=== PATIENT | female | born 1985 | race Caucasian/White ===

== ENCOUNTER → 2019-04-11 17:58 | Emergency (ER) | payer BC, OTHER ==
[~2019-04-11 17:58] MED LIST: Amoxicillin/Clavulanate TAB* 875 MG PO ONE; Lidocaine 1% INJ* 10 MG/ML 30 ML SDV INJ ONE
--- OUTSIDE RECORDS SUMMARY | 2019-04-11 18:13 | XMS REPORT | Continuity of Care Document ---
:1985 External Reference #:[id number] Author Name Raymond Swan D.O. Address [address] [place] [id number] Care Team Providers Name Role Phone HCP given Primary Care Physician Unavailable Payers Date Identification Numbers Payment Provider Subscriber Effective: Policy Number: [id number] Elba Pinon 2018 Ind/Ppo/Hmo/Pos PayID: [id number] [address] [place] [id number] Problems Active Problems Provider Date Nausea and vomiting Raymond Swan D.O. Onset: 08/07/2015 Amenorrhea Raymond Swan D.O. Onset: 08/07/2015 Nontoxic single thyroid nodule Raymond Swan D.O. 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 Right-handed Tobacco Use Start: Unknown Denies Cigarette Use ETOH Use Occassional Alcohol Recreational Drug Use Denies Drug Use Tobacco Use Reviewed: 11/01/18 Non Smoker Smoking Status Reviewed: 03/05/19 Non Smoker Exercise Type/Frequency Exercises regularly Sun Exposure Uses sunscreen Seat Belt/Car Seat Seat Belt Use - Yes Guns in Home No Smoke Alarms Yes smoke alarm Currently Active Patient is currently sexually active Contraceptive Methods 2016 IUD Mirena Allergies, Adverse Reactions, Alerts Description No Known Drug Allergies Medications Active Medications SIG Qnty Indications Ordering Provider Date Tobramycin 1 drop three 5ml H10.89 Raymond Swan, 03/05/2019 0.3% Solution times a day for D.O. 3 days Vitamin D-3 2 by mouth every Angelia, [place], 11/01/2018 1000Unit day M.DGabriella Capsules Valacyclovir HCL 1 tablet by Kathleen Rodgers, 08/31/2018 500mg mouth daily MD Tablets Mirena (52 MG) Unknown 08/23/2016 20mcg/24HR IUD History Medications Vitamin B Complex 1 by mouth every 30tabs Angelia, 11/01/2018 - day Ishan Peter 03/04/2019 Tablets Amoxicillin 2 by mouth three 60tabs J01.90 Yovanacoff, 10/20/2018 - 500mg times a day for Ishan Peter 11/01/2018 Tablets 10 days for sinusitis Valacyclovir HCL 1g PO q12h x10 20tabs Angelia, 02/15/2018 - 1gm days Ishan Peter 02/25/2018 Tablets Imiquimod apply to external 36units [facility], 02/14/2018 - 5% Cream lesions 3x/week Ishan Peter 02/15/2018 at bedtime Ciprofloxacin HCL 1 tab by mouth 14tabs N39.0 Yovanaco, 02/09/2018 - 500mg twice a day x7 Ishan Peter 02/16/2018 Tablets days Tumeric one po daily Unknown 10/25/2017 - 02/08/2018 Green Tea Complex one po daily Unknown 10/25/2017 - 02/08/2018 Selenium one po daily Unknown 10/25/2017 - 02/08/2018 Zinc one po daily Unknown 10/25/2017 - 02/08/2018 Vitamin C one po daily Unknown 10/25/2017 - 05/17/2018 Multivitamin Adult 1 by mouth every Unknown 10/25/2017 - day 11/01/2018 Tablets Tamiflu 1 by mouth twice 10caps Silcoff, 10/11/2017 - 75mg Capsules a day x5 days, Ishan Peter 10/16/2017 for possible flu Lo Loestrin Fe Unknown 08/06/2015 - 1mg-10 09/21/2016 mcg / 10 mcg Tablets Onexton apply to affected Unknown 08/06/2015 - 1.2-3.75% Gel area on face once 10/25/2017 a day, for acne as needed Atralin as needed Unknown 08/06/2015 - 0.05% Gel 10/25/2017 Abc Plus one po daily as Unknown 08/06/2015 - Tablets needed 10/25/2017 Vitamin D3 one caps po daily Unknown 08/06/2015 - 1000Unit as needed 05/17/2018 Capsules Immunizations CPT Code Status Date Vaccine Lot # [id number] Given 07/20/2018 Influenza Virus Vaccine, Quadrivalent, Split, Preservative Free 65060 Given 10/26/2017 Adacel or Boostrix, TDaP [id number] Given 10/26/2017 Influenza Virus Vaccine, Quadrivalent, Split, [id number] Preservative Free 35749 Given 09/22/2016 Influenza Virus Vaccine, Quadrivalent, Split, [id number] Preservative Free Vital Signs Date Vital Result Comment 03/05/2019 4:41pm BP Systolic 102 mmHg BP Diastolic 62 mmHg Body Temperature 97.8 F Weight 119.00 lb 11/01/2018 8:23am BP Systolic 100 mmHg BP Diastolic 60 mmHg Height 65 inches 5'5" Weight 119.00 lb BMI (Body Mass Index) 19.8 kg/m2 10/20/2018 11:01am BP Systolic 110 mmHg BP Diastolic 70 mmHg Body Temperature 97.7 F Height 64.50 inches 5'4.50" Weight 120.00 lb BMI (Body Mass Index) 20.3 kg/m2 05/18/2018 4:46pm BP Systolic 106 mmHg BP Diastolic 68 mmHg Heart Rate 60 /min Body Temperature 97.9 F Height 64 inches 5'4" Weight 125.00 lb BMI (Body Mass Index) 21.5 kg/m2 02/09/2018 4:04pm BP Systolic 104 mmHg BP Diastolic 70 mmHg Weight 128.00 lb 10/26/2017 10:01am BP Systolic 100 mmHg BP Diastolic 62 mmHg Height 63.75 inches 5'3.75" Weight 128.00 lb BMI (Body Mass Index) 22.1 kg/m2 09/22/2016 9:51am BP Systolic 108 mmHg BP Diastolic 58 mmHg Height 64 inches 5'4" Weight 131.00 lb BMI (Body Mass Index) 22.5 kg/m2 04/17/2016 9:12am BP Systolic 104 mmHg BP Diastolic 60 mmHg Height 64 inches 5'4" Weight 125.00 lb BMI (Body Mass Index) 21.5 kg/m2 08/07/2015 10:36am BP Systolic 115 mmHg BP Diastolic 80 mmHg Height 64.25 inches 5'4.25" Weight 121.00 lb BMI (Body Mass Index) 20.6 kg/m2 Results Test Date Facility Test Result H/L Range Note Laboratory test 09/20/2018 [facility] Cytology SEE RESULT 1 finding [phone] BELOW Basic Metabolic 05/19/2018 [facility] Sodium 139 mmol/L N 135-145 Panel [phone] Potassium 4.4 mmol/L N 3.5-5.0 Chloride 106 mmol/L N 101-111 Co2 Carbon Dioxide 27 mmol/L N 22-32 Anion Gap 6 mmol/L N 2-11 Glucose 76 mg/dL N 70-100 Blood Urea Nitrogen 14 mg/dL N 6-24 Creatinine 0.70 mg/dL N 0.51-0.95 BUN/Creatinine Ratio 20.0 N 8-20 Calcium 9.3 mg/dL N 8.6-10.3 Egfr Non- 97.6 >60 Egfr 118.1 >60 2 Laboratory test 05/19/2018 [facility] TSH (Thyroid 1.16 mcIU/mL N 0.34-5.60 finding [phone] Stim Horm) T3 Free 3.40 pg/mL N 2.5-3.9 Free T4 (Free Thyroxine) 0.77 ng/dL N 0.61-1.12 Thyroxine 5.53 g/mL Low 6.09-12.23 Vitamin D Total 25(Oh) 44.9 ng/mL N 20-50 Lyme Disease Serology Negative Negative 3 CBC Auto Diff 05/19/2018 [facility] White Blood Count 4.6 10^3/uL N 3.5-10.8 [phone] Red Blood Count 4.68 10^6/uL N 4.00-5.40 Hemoglobin 14.7 g/dL N 12.0-16.0 Hematocrit 42 % N 35-47 Mean Corpuscular Volume 89 fL N 80-97 Mean Corpuscular Hemoglobin 32 pg High 27-31 Mean Corpuscular HGB Conc 35 g/dL N 31-36 Red Cell Distribution Width 13 % N 10.5-15 Platelet Count 229 10^3/uL N 150-450 Mean Platelet Volume 8.5 um3 N 7.4-10.4 Abs Neutrophils 2.0 10^3/uL N 1.5-7.7 Abs Lymphocytes 1.9 10^3/uL N 1.0-4.8 Abs Monocytes 0.4 10^3/uL N 0-0.8 Abs Eosinophils 0.1 10^3/uL N 0-0.6 Abs Basophils 0 10^3/uL N 0-0.2 Abs Nucleated RBC 0 10^3/uL Granulocyte % 44.9 % N 38-83 Lymphocyte % 41.7 % N 25-47 Monocyte % 9.8 % High 0-7 Eosinophil % 2.6 % N 0-6 Basophil % 1.0 % N 0-2 Nucleated Red Blood Cells % 0.1 Laboratory test 05/19/2018 [facility] Vitamin B12 421 pg/mL N 180- 914 4 finding [phone] HIV 1/2 AB 02/10/2018 [facility] HIV 1 2 Nonreactive Nonreactive 5 Evaluation [phone] Antibody Herpes Simplex 02/10/2018 [facility] Herpes Simplex Negative Negative Type 1&2 Igg [phone] Virus I IgG AB Herpes Simplex Virus II IgG AB Negative Negative 6 Laboratory test 02/10/2018 [facility] Syphillis Igg Nonreactive Nonreactive 7 finding [phone] W/Reflex RPR GC/Chlamydia 02/09/2018 [facility] Chlamydia Negative Negative Amplified Rna [phone] trachomatis Rna Neisseria gonorrhoeae (GC) Rna Negative Negative Herpes Simplex PCR 02/09/2018 [facility] Herpes Source VULVAR SWAB [phone] HSV 1 PCR Positive Abnormal Negative HSV 2 PCR Negative Negative 8 [facility] Inhouse 02/09/2018 In House [facility] Glucose - 9 Ua Bilirubin - Ua Ketones 40 Ua Specific [place] 1.030 Ua Blood mod Ua PH 6.0 Ua Protein trace Ua Urobilinogen - Ua Nitrite - Ua Leukocytes mod Laboratory test 11/17/2017 [facility] Surgical SEE RESULT 10 finding [phone] Pathology BELOW Pthi 11/16/2017 [facility] Calcium (PTH 9.4 mg/dL N 8.6-10. [phone] Intact) 3 PTH Intact 2.9 pmol/L N 1.3-9.3 Comp Metabolic Panel 11/04/2017 [facility] Sodium 137 mmol/L N 133- 145 [phone] Potassium 4.4 mmol/L N 3.5-5.0 Chloride 104 mmol/L N 101-111 Co2 Carbon Dioxide 31 mmol/L N 22-32 Anion Gap 2 mmol/L N 2-11 Glucose 89 mg/dL N 70-100 Blood Urea Nitrogen 15 mg/dL N 6-24 Creatinine 0.69 mg/dL N 0.51-0.95 BUN/Creatinine Ratio 21.7 High 8-20 Calcium 9.5 mg/dL N 8.6-10.3 Total Protein 6.6 g/dL N 6.4-8.9 Albumin 4.1 g/dL N 3.2-5.2 Globulin 2.5 g/dL N 2-4 Albumin/Globulin Ratio 1.6 N 1-3 Total Bilirubin 0.60 mg/dL N 0.2-1.0 Alkaline Phosphatase 57 U/L N 34-104 Alt 24 U/L N 7-52 Ast 30 U/L N 13-39 Egfr Non- 99.9 >60 Egfr 128.5 >60 11 Lipid Profile (Trig/Chol/HDL) 11/04/2017 [facility] Triglycerides 44 mg /dL 12 [phone] Cholesterol 193 mg/dL 13 HDL Cholesterol 70.4 mg/dL 14 LDL Cholesterol 114 mg/dL 15 Laboratory test 11/04/2017 [facility] TSH (Thyroid 0.95 mcIU/mL N 0.34-5.60 finding [phone] Stim Horm) T3 Total 1.07 ng/mL N 0.87-1.78 Thyroxine 6.79 g/mL N 6.09-12.23 Miscellaneous Test See Comment 16 Laboratory test 02/05/2016 [facility] Cytology Non-Microsoft Office Instructor SEE RESULT 17 finding [phone] BELOW 1 SEE RESULT BELOW Name: ANGELICA PINON : [address]: Kathleen Rodgers MD Acct: [id number] Unit: [id number] AGE: 33 Location: [facility] Re09/20/18 SEX: F Status: REG REF SPEC: [id number] GILLES: 09/20/18 [facility] DR: Kathleen Rodgers MD REQ: [id number] RECD: 09/20/18 STATUS: THADDEUS LÓPEZ DR: Raymond Swan DO _ ORDERED: TP IMAGE ANALYS, HPV/Thin Prep COMMENTS: [id number] Negative for Intraepithelial lesion or Malignancy Date Time Test Result Flag (u) Normal Range 09/20/18 09 @ HPV RNA Negative Negative @ @ The high-risk HPV types detected by the assay include: 16, @ 18, 31, 33, 35, 39, 45, 51, 52, 56, 58, 59, 66, and 68. A. Ectocervical/Endocervical Specimen Adequacy: Satisfactory of evaluation Transformation zone component identified Patient Information: HPV: High risk HPV RNA testing regardless of pap results. Actual Specimen Date: 09/20/18 Last Menstrual Date: 09/17/18 Date of Last Specimen: 07/06/16 Signed by and Reported on: MONA Larson (ASCP) 0941 This Pap test was evaluated with the assistance of the [employer]via [employer] Test Imaging System. Due to cytologic findings at the education liaison microscope, comprehensive manual rescreening by a Inventory Control Assistant may be required. The Pap Smear is a screening test designed to aid in the detection of premalignant and malignant conditions of the uterine cervix. It is not a diagnostic procedure and should not be used as the sole means of detecting cervical cancer. Both false- positive and false- negative reports do occur. Depending on your risk status, a Pap smear should be obtained and evaluated every 1-3 years. END OF REPORT DEPARTMENT OF PATHOLOGY, [address] [place] [address] Jose Daniel Lockett M.D. Director [facility] # [id number] 2 Because ethnic data is not always readily available, this report includes an eGFR for both -Americans and non- Americans. The National Kidney Disease Education Program (NKDEP) does not endorse the use of the MDRD equation for patients that are not between the ages of 18 and 70, are , have extremes of body size, muscle mass, or nutritional status, or are non- or non-. According to the National Kidney Foundation, irrespective of diagnosis, the stage of the disease is based on the level of kidney function: Stage Description GFR(mL/min/1.73 m(2)) 1 Kidney damage with normal or decreased GFR 90 2 Kidney damage with mild decrease in GFR 60-89 3 Moderate decrease in GFR 30-59 4 Severe decrease in GFR 15-29 5 Kidney failure <15 (or dialysis) 3 No evidence of antibodies to B. burgdorferi detected. False negative results may occur in recently infected patients (<=2 weeks) due to low or undetectable antibody levels to B. burgdorferi. If recent exposure is suspected, a second sample should be collected and tested in 2-4 weeks. Test Performed by: [facility] - [facility] [employer] [place] [address] 4 Normal Range 180 to 914 Indeterminate Range 145 to 180 Deficient Range <145 5 It is recognized that currently available assays for the detection of antibodies to HIV-1 and/or HIV-2 may not detect all infected individuals. HIV antibodies may be undetectable in some stages of the infection and in some clinical conditions. The performance of this assay has not been established for populations of infants or children. Assayed by Chemiluminescence Microparticle Immunoassay on the Siemens Advia Centaur CP. Values obtained with different methods or kits cannot be used interchangeably.The diagnostic specificity of the ADVIA Centaur 1/O/2 Enhanced assay in the low risk population was 99.90% (6052/6058) with a 95% confidence interval of 99.78 to 99.96%. 6 Test Performed by: [facility] - [place] [address] 7 Warning: A positive result is not useful for establishing a diagnosis of syphilis. In most situations, such a result may reflect a prior treated infection; a negative result can exclude a diagnosis of syphilis except for incubating or early primary disease. 8 ADDITIONAL INFORMATION This test was developed using an analyte specific reagent. Its performance characteristics were determined by [facility] in a manner consistent with CLIA requirements. This test has not been cleared or approved by the U.S. Food and Drug Administration. Test Performed by: [facility] - [address] [address] 9 Void, hazy, pro 10 SEE RESULT BELOW Name: ANGELICA PINON : [address]: Chai Vega MD Acct: [id number] Unit: [id number] AGE: 32 Location: [facility] Re11/17/17 SEX: F Status: REG REF SPEC: [id number] GILLES: 11/17/17-[address] [facility] [address]: Chai Vega MD REQ: [id number] RECD: 11/17/171907 STATUS: THADDEUS LÓPEZ DR: Shyanne Zaidi [facility] _ ORDERED: LEVEL 4, IMMUNO-FIRST, IMMUNO-ADDL COMMENTS: [id number] An SMA immunohistochemical staining, with appropriately reacting controls, was performed and is negative, supporting the previously rendered diagnosis. Addendum Signed (signature on file) Kortney Rosales MD 06/03 1011 FINAL DIAGNOSIS Soft tissue, left lower leg, excision: -- Schwannoma (1.5 cm). Comment: Specimen demonstrates an encapsulated nodular mass associated with a nerve trunk. Mass demonstrates a proliferation of [place]-appearing spindled elements arranged in haphazard fascicles forming "[place]ocay" bodies. No atypia is seen. No necrosis or significant mitotic activity is seen. An immunohistochemical stain for S100 performed with appropriate controls is positive and supports the above rendered diagnosis. An immunohistochemical stain for smooth muscle actin performed with appropriate controls is negative. Dr. Rosales has reviewed this case and concurs. PRE-OPERATIVE DIAGNOSIS Left lower leg mass CONTINUED ON NEXT PAGE * ML=Testing performed at Main Lab DEPARTMENT OF PATHOLOGY, [address] [place] [address] Jose Daniel Lockett M.D. Director [facility] # [id number] RUN DATE: 11/24/17 [facility] LAB LIVE PAGE 2 Patient: ANGELICA PINON [id number] (Continued) GROSS DESCRIPTION (Continued) GROSS DESCRIPTION The specimen is received in formalin labeled, Left Lower Leg Mass, and consists of two centrally adherent ovoid bosselated to scabrous conical skin fragments aggregating 1.5 x 1.1 by up to 1.0 cm partially surfaced by delgado-white fibromembranous/ cartilaginous tissue. The specimen is inked, serially sectioned and entirely submitted in one cassette. Signed (signature on file) Jose Daniel Lockett MD 1430 END OF REPORT * ML=Testing performed at Main Lab DEPARTMENT OF PATHOLOGY, [address] [place] [address] Jose Daniel Lockett M.D. Director [facility] # [id number] 11 Because ethnic data is not always readily available, this report includes an eGFR for both -Americans and non- Americans. The National Kidney Disease Education Program (NKDEP) does not endorse the use of the MDRD equation for patients that are not between the ages of 18 and 70, are , have extremes of body size, muscle mass, or nutritional status, or are non- or non-. According to the National Kidney Foundation, irrespective of diagnosis, the stage of the disease is based on the level of kidney function: Stage Description GFR(mL/min/1.73 m(2)) 1 Kidney damage with normal or decreased GFR 90 2 Kidney damage with mild decrease in GFR 60-89 3 Moderate decrease in GFR 30-59 4 Severe decrease in GFR 15-29 5 Kidney failure <15 (or dialysis) 12 Desirable: <150 Borderline High: 150-199 High: 200-499 Very High: >500 13 Desirable: <200 Borderline High: 200-239 High: >239 14 Low: <40 Desirable: 40-60 High: >60 15 Desirable: <100 Near Optimal: 100-129 Borderline High: 130-159 High: 160-189 Very High: >189 16 Test Result Flag Unit RefValue Rabies [facility] Endpoint, S Rabies Titer-Response 2.3 IU/mL ADDITIONAL INFORMATION Reportable range is 0.1 to 15.0 IU/mL Less than 0.1 IU/mL: Below detection limit In humans, a result of 0.5 IU/mL or higher is considered an acceptable response to rabies vaccination according to the World Health Organization (WHO)guidelines; see WHO and Advisory Committee on Immunization Practices documents for additional guidance. Test Performed by: [facility] Rena Lara/[facility] [place] [address] [address] 17 SEE RESULT BELOW Name: ANGELICA IPNON : [address]: Gregg Kingston MD Acct: [id number] Unit: [id number] AGE: 30 Location: THYROID Re02/05/16 SEX: F Status: REG REF SPEC: [id number] GILLES: 02/05/16-[address] [facility] [address]: Austin Stone MD REQ: [id number] RECD: 02/05/16 STATUS: THADDEUS LÓPEZ DR: Gregg Swan DO _ ORDERED: FN ASP DEEP, FNA IMMEDIATE S FINAL DIAGNOSIS Thyroid, left, Ultrasound guided, fine needle aspiration: Benign thyroid nodule- involutional type (Hart class II). The specimen demonstrates moderate watery proteinaceous fluid, a moderate amount of benign appearing follicular epithelium arranged in uniform sheets, medium sized follicles and only occasional small groups. Abundant pigmented and non-pigmented macrophages are seen in the background. No features of papillary carcinoma are seen. In this clinical setting the risk of malignancy is less than 3%. Clinical management of this thyroid nodule should be based on clinical and radiographic features as well as the above findings. THYROID LEFT - US GUIDED FINE NEEDLE ASPIRATION CLINICAL HISTORY Left thyroid nodule, 1.9x 1.1x 1.0cm CONTINUED ON NEXT PAGE * ML=Testing performed at Main Lab DEPARTMENT OF PATHOLOGY, [address] [place] [address] Jose Daniel Lockett M.D. Director [facility] # [id number] RUN DATE: 02/05/16 [facility] LAB LIVE PAGE 2 Patient: ANGELICA PINON [id number] (Continued) IMMEDIATE INTERPRETATION (Continued) IMMEDIATE INTERPRETATION Pass 1-adequate GROSS DESCRIPTION 6- alcohol fixed slide(s) 1 - passes Signed (signature on file) Jose Daniel Lockett MD 1038 END OF REPORT * ML=Testing performed at Main Lab DEPARTMENT OF PATHOLOGY, [address] [place] [address] Jose Daniel Lockett M.D. Director [facility] # [id number] Procedures Date Code Description Status 10/17/2013 [id number] Mammogram Completed 10/17/2009 [id number] Colonoscopy Completed Encounters Type Date Location Provider Dx Diagnosis Office Visit 03/05/2019 Main Office Raymond Swan, H10.89 Other conjunctivitis 4:45p D.O. Office Visit 11/01/2018 Main Office Shyanne Zaidi PA Z00.00 Encntr for general 8:00a adult medical exam w/o abnormal findings E04.1 Nontoxic single thyroid nodule R00.2 Palpitations A60.00 Herpesviral infection of urogenital system, unspecified Office Visit 10/20/2018 11:00a Main Office [place] Galan, J01.90 Acute sinusitis, M.D. unspecified Office Visit 05/18/2018 4:40p Main Office Ashlyn Braga, R53.83 Other fatigue P.A. R94.6 Abnormal results of thyroid function studies Office Visit 02/09/2018 3:15p Main Office Shyanne Zaidi PA N39.0 Urinary tract infection, site not specified B08.1 Molluscum contagiosum Z11.3 Encntr screen for infections w sexl mode of transmiss Office Visit 10/26/2017 9:40a Main Office Shyanne Zaidi PA Z00.00 Encntr for general adult medical exam w/o abnormal findings Z23 Encounter for immunization E04.1 Nontoxic single thyroid nodule R22.42 Localized swelling, mass and lump, left lower limb Z13.220 Encounter for screening for lipoid disorders Z41.8 Encntr for oth proc for purpose oth than [facility] Z71.89 Other specified counseling Office Visit 09/22/2016 9:40a Main Office Shyanne Zaidi PA Z00.00 Encntr for general adult medical exam w/o abnormal findings Z23 Encounter for immunization E04.1 Nontoxic single thyroid nodule Z41.8 Encntr for oth proc for purpose oth than [facility] Office Visit 04/17/2016 9:15a Main Office [place] Galan, M79.605 Pain in left M.D. leg R22.42 Localized swelling, mass and lump, left lower limb Z71.89 Other specified counseling Office Visit 08/07/2015 10:30a Main Office Raymond Swan, R11.2 Nausea with D.O. vomiting, unspecified E04.1 Nontoxic single thyroid nodule N91.2 Amenorrhea, unspecified Z00.01 Encounter for general adult medical exam w abnormal findings Plan of Treatment Future Appointment(s):11/07/2019 8:00 am - Shynane Zaidi PA at Main [facility]6111/2017 - Philip OrnelasR53.83 Other fatigueComments:HgB: 13.5% Reviewed tests we will start with, and will go from there. If labs normal, will have pt return to the office if sxs are continuing and perform a detailed neuro exam, consider additional sikcnerX65.6 Abnormal results of thyroid function studies
--- OUTSIDE RECORDS SUMMARY | 2019-04-11 18:13 | XMS REPORT | Continuity of Care Document ---
:1985 External Reference #:[id number] Author Name Raymond Swan D.O. Address [address] [place] [id number] Care Team Providers Name Role Phone HCP given Primary Care Physician Unavailable Payers Date Identification Numbers Payment Provider Subscriber Effective: Policy Number: [id number] Elba Pinon 2018 Ind/Ppo/Hmo/Pos PayID: [id number] [id number] [place] [id number] Problems Active Problems Provider Date Nausea and vomiting Raymond Swan D.O. Onset: 08/07/2015 Amenorrhea Raymond Swan D.O. Onset: 08/07/2015 Nontoxic single thyroid nodule Raymond Swan D.O. 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 [...] Imiquimod apply to external 36units [facility], 02/14/2018 - 5% Cream lesions 3x/week Ishan [...] CPT Code Status Date Vaccine Lot # [id number] Given 07/20/2018 Influenza Virus Vaccine, Quadrivalent, Split, Preservative Free 38748 Given 10/26/2017 Adacel or Boostrix, TDaP [id number] 13982 Given 10/26/2017 Influenza Virus Vaccine, Quadrivalent, Split, [id number] Preservative Free 58058 Given 09/22/2016 Influenza Virus Vaccine, Quadrivalent, Split, [...] Result H/L Range Note Laboratory test 09/20/2018 [facility] Cytology SEE RESULT 1 finding [phone] BELOW Basic Metabolic 05/19/2018 [facility] Sodium 139 mmol/L N 135-145 Panel [phone] Potassium 4.4 mmol/L N 3.5-5.0 Chloride 106 mmol/L N 101-111 Co2 Carbon Dioxide 27 mmol/L N 22-32 Anion Gap 6 mmol/L N 2-11 Glucose 76 mg/dL N 70-100 Blood Urea Nitrogen 14 mg/dL N 6-24 Creatinine 0.70 mg/dL N 0.51-0.95 BUN/Creatinine Ratio 20.0 N 8-20 Calcium 9.3 mg/dL N 8.6-10.3 Egfr Non- 97.6 >60 Egfr 118.1 >60 2 Laboratory test 05/19/2018 [facility] TSH (Thyroid 1.16 mcIU/mL N 0.34-5.60 finding [phone] Stim Horm) T3 Free 3.40 pg/mL N 2.5-3.9 Free T4 (Free Thyroxine) 0.77 ng/dL N 0.61-1.12 Thyroxine 5.53 g/mL Low 6.09-12.23 Vitamin D Total 25(Oh) 44.9 ng/mL N 20-50 Lyme Disease Serology Negative Negative 3 CBC Auto Diff 05/19/2018 [facility] White Blood Count 4.6 10^3/uL N 3.5-10.8 [phone] Red Blood Count 4.68 10^6/uL N 4.00-5.40 [...] Blood Cells % 0.1 Laboratory test 05/19/2018 [facility] Vitamin B12 421 pg/mL N 180- 914 4 finding [phone] HIV 1/2 AB 02/10/2018 [facility] HIV 1 2 Nonreactive Nonreactive 5 Evaluation [phone] Antibody Herpes Simplex 02/10/2018 [facility] Herpes Simplex Negative Negative Type 1&2 Igg [phone] Virus I IgG AB Herpes Simplex Virus II IgG AB Negative Negative 6 Laboratory test 02/10/2018 [facility] Syphillis Igg Nonreactive Nonreactive 7 finding [phone] W/Reflex RPR GC/Chlamydia 02/09/2018 [facility] Chlamydia Negative Negative Amplified Rna [phone] trachomatis Rna Neisseria gonorrhoeae (GC) Rna Negative Negative Herpes Simplex PCR 02/09/2018 [facility] Herpes Source VULVAR SWAB [phone] HSV 1 PCR Positive Abnormal Negative HSV 2 PCR Negative Negative 8 [facility] Inhouse 02/09/2018 In House Ua Glucose - 9 Ua Bilirubin - Ua Ketones 40 Ua Specific [place] 1.030 Ua Blood mod Ua PH 6.0 Ua Protein trace Ua Urobilinogen - Ua Nitrite - Ua Leukocytes mod Laboratory test 11/17/2017 [facility] Surgical SEE RESULT 10 finding [phone] Pathology BELOW Pthi 11/16/2017 [facility] Calcium (PTH 9.4 mg/dL N 8.6-10. [phone] Intact) 3 PTH Intact 2.9 pmol/L N 1.3-9.3 Comp Metabolic Panel 11/04/2017 [facility] Sodium 137 mmol/L N 133- 145 [phone] Potassium 4.4 mmol/L N 3.5-5.0 Chloride 104 [...] 128.5 >60 11 Lipid Profile (Trig/Chol/HDL) 11/04/2017 [facility] Triglycerides 44 mg /dL 12 [phone] Cholesterol 193 mg/dL 13 HDL Cholesterol 70.4 mg/dL 14 LDL Cholesterol 114 mg/dL 15 Laboratory test 11/04/2017 [facility] TSH (Thyroid 0.95 mcIU/mL N 0.34-5.60 finding [phone] Stim Horm) T3 Total 1.07 ng/mL N 0.87-1.78 Thyroxine 6.79 g/mL N 6.09-12.23 Miscellaneous Test See Comment 16 Laboratory test 02/05/2016 [facility] Cytology Non-Pecan Mallow Dipper SEE RESULT 17 finding [phone] BELOW 1 SEE RESULT BELOW Name: ANGELICA PINON : [address]: Kathleen Rodgers MD Acct: [id number] Unit: [id number] AGE: 33 Location: [facility] Re09/20/18 SEX: F Status: REG REF SPEC: [id number] GILLES: 09/20/[address] [facility] [address]: Kathleen Rodgers MD REQ: [id number] RECD: 09/20/18 STATUS: THADDEUS LÓPEZ DR: Raymond Swan DO _ ORDERED: TP IMAGE ANALYS, HPV/Thin Prep COMMENTS: [id number] Negative for Intraepithelial lesion or Malignancy Date [...] was evaluated with the assistance of the 3Derm SystemsPrep Test Imaging System. Due to cytologic findings at the chief crew scheduler microscope, comprehensive manual rescreening by a Punch Out Crew Member may be required. The Pap Smear is [...] years. END OF REPORT DEPARTMENT OF PATHOLOGY, [address] [place] [address] Jose Daniel Lockett M.D. Director [facility] # [id number] 2 Because ethnic data is not always [...] tested in 2-4 weeks. Test Performed by: [facility] - [facility] [address] [place] [address] 4 Normal Range 180 to 914 Indeterminate [...] 99.78 to 99.96%. 6 Test Performed by: [facility] [place] [address] 7 Warning: A positive result is not useful for establishing a diagnosis of syphilis. In most situations, such a result may reflect a prior treated infection; a negative result can exclude a diagnosis of syphilis except for incubating or early primary disease. 8 ADDITIONAL INFORMATION This test was developed using an analyte specific reagent. Its performance characteristics were determined by [facility] in a manner consistent with CLIA requirements. This test has not been cleared or approved by the U.S. Food and Drug Administration. Test Performed by: [facility] - [address] [address] 9 Void, hazy, pro 10 SEE RESULT BELOW Name: ANGELICA PINON : [address]: Chai Vega MD Acct: [id number] Unit: [id number] AGE: 32 Location: [facility] Re11/17/17 SEX: F Status: REG REF SPEC: [id number] GILLES: 11/17/17-[address] [facility] [address]: Chai Vega MD REQ: [id number] RECD: 11/17/175010 STATUS: THADDEUS LÓPEZ DR: Shyanne Zaidi [facility] _ ORDERED: LEVEL 4, IMMUNO-FIRST, IMMUNO-ADDL COMMENTS: [id number] An SMA immunohistochemical staining, with appropriately reacting controls, was performed and is negative, supporting the previously rendered diagnosis. Addendum Signed (signature on file) Kortney Rosales MD 06/03 1011 FINAL DIAGNOSIS Soft tissue, left lower leg, excision: -- Schwannoma (1.5 cm). Comment: Specimen demonstrates an encapsulated nodular mass associated with a nerve trunk. Mass demonstrates a proliferation of Bradford-appearing spindled elements arranged in haphazard fascicles forming [...] performed at Main Lab DEPARTMENT OF PATHOLOGY, [address] [place] [address] Jose Daniel Lockett M.D. Director [facility] # [id number] RUN DATE: 11/24/17 [facility] LAB LIVE PAGE 2 Patient: ANGELICA PINON [id number] (Continued) GROSS DESCRIPTION (Continued) GROSS DESCRIPTION The [...] performed at Main Lab DEPARTMENT OF PATHOLOGY, [address] [place] [address] Jose Daniel Lockett M.D. Director [facility] # [id number] 11 Because ethnic data is not always [...] 16 Test Result Flag Unit RefValue Rabies [facility] Endpoint, S Rabies Titer-Response 2.3 IU/mL ADDITIONAL INFORMATION Reportable range is 0.1 to 15.0 IU/mL Less than 0.1 IU/mL: Below detection limit In humans, a result of 0.5 IU/mL or higher is considered an acceptable response to rabies vaccination according to the World Health Organization (WHO)guidelines; see WHO and Advisory Committee on Immunization Practices documents for additional guidance. Test Performed by: [facility] Rabies Laboratory [place] [place] [address] [address] 17 SEE RESULT BELOW Name: ANGELICA PINON : [address]: Gregg Kingston MD Acct: [id number] Unit: [id number] AGE: 30 Location: THYROID Re02/05/16 SEX: F Status: REG REF SPEC: [id number] GILLES: 02/05/16-[address] [facility] [address]: Austin Stone MD REQ: [id number] RECD: 02/05/16 STATUS: THADDEUS LÓPEZ DR: Gregg Swan DO _ ORDERED: FN ASP DEEP, FNA IMMEDIATE S FINAL DIAGNOSIS Thyroid, left, Ultrasound guided, fine needle aspiration: Benign thyroid nodule- involutional type (Bunkie class II). The specimen demonstrates moderate watery [...] performed at Main Lab DEPARTMENT OF PATHOLOGY, [address] [place] [address] Jose Daniel Lockett M.D. Director [facility] # [id number] RUN DATE: 02/05/16 [facility] LAB LIVE PAGE 2 Patient: ANGELICA PINON [id number] (Continued) IMMEDIATE INTERPRETATION (Continued) IMMEDIATE INTERPRETATION Pass 1-adequate GROSS DESCRIPTION 6- alcohol fixed slide(s) 1 - passes Signed (signature on file) Jose Daniel Lockett MD 1038 END OF REPORT * ML=Testing performed at Main Lab DEPARTMENT OF PATHOLOGY, [address] [place] [address] Jose Daniel Lockett M.D. Director [facility] # [id number] Procedures Date Code Description Status 10/17/2013 96903872 Mammogram Completed 10/17/2009 [id number] Colonoscopy Completed Encounters Type Date Location Provider [...] for oth proc for purpose oth than [facility] Z71.89 Other specified counseling Office Visit 09/22/2016 9:40a Main Office Shyanne Zaidi PA Z00.00 Encntr for general adult medical exam w/o abnormal findings Z23 Encounter for immunization E04.1 Nontoxic single thyroid nodule Z41.8 Encntr for oth proc for purpose oth than [facility] Office Visit 04/17/2016 9:15a Main Office [place] [...] of Treatment Future Appointment(s):11/07/2019 8:00 am - Shyanne Zaidi PA at Main [id number] - Raymond Swan D.O.H10.89 Other conjunctivitisNew Medication: Tobramycin 0.3 % - 1 drop three times a day for 3 daysFollow up:as scheduled
--- NOTE | 2019-04-11 19:51 | ED ---
Laceration/Wound HPI - HPI Summary HPI Summary: A 33 y/o female presents to [facility] with a chief complaint of a head laceration today. She reports that a dirty oral speculum for a horse hit her head. At triage she rated her pain as a 1/10 in severity. Last tetanus shot was in 2017. She denies any LOC or vision changes. 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 - History of Current Complaint Stated Complaint: HEAD LAC PER PT Time Seen by Provider: 04/11/19 19:44 Hx Obtained From: Patient Hx Last Menstrual Period: February Onset/Duration: Lasting Hours, Still Present Aggravating: Nothing Alleviating: Nothing Timing: Constant Onset Severity: Mild Current Severity: Mild Pain Intensity: 1 Pain Scale Used: 0-10 Numeric Associated Signs & Symptoms: Negative - Allergy/Home Medications Allergies/Adverse Reactions: Allergies Allergy/AdvReac Type Severity Reaction Status Date / Time No Known Allergies Allergy Verified 04/11/19 18:05 Home Medications: Home Medications Valacyclovir HCl [Valacyclovir] 500 mg PO DAILY 04/11/19 [History Confirmed ] PMH/Surg Hx/FS Hx/Imm Hx Endocrine/Hematology History: Denies: Hx Diabetes, Hx Anemia GI History: Denies: Hx Jaundice - Immunization History Date of Tetanus Vaccine: 2016 Infectious Disease History: No Infectious Disease History: Denies: Hx Clostridium Difficile, Hx Hepatitis, Traveled Outside the [place] in Last 30 Days - Family History Known Family History: Negative: Blood Disorder - Social History Alcohol Use: Weekly Alcohol Amount: a few times Substance Use Type: Reports: None Smoking Status (MU): Never Smoked Tobacco Have You Smoked in the Last Year: No Review of Systems Negative: Fever Eyes: Negative - vision changes Positive: Other - positive: head laceration Neurological: Negative - LOC All Other Systems Reviewed And Are Negative: Yes Physical Exam - Summary Physical Exam Summary: Constitutional: Well-developed, Well-nourished, Alert. (-) Distressed Skin: Warm, Dry, single laceration Y shaped with longest arm of Y being 2cm and smallest offshoot is 4mm. The wound itself is already well approximated. It is otherwise very linear. The wound is intact and not jagged. There is no active bleeding. It is appropriately tender, no unusual tenderness, no bony deformity or tenderness. Sensation is intact. No debris. 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 HENT: Normocephalic; Atraumatic Eyes: Conjunctiva normal Neck: Musculoskeletal ROM normal neck. (-) JVD, (-) Stridor, (-) Tracheal deviation Cardio: Rhythm regular, rate normal, Heart sounds normal; Intact distal pulses; The pedal pulses are 2+ and symmetric. Radial pulses are 2+ and symmetric. Pulmonary/Chest wall: Effort normal. (-) Respiratory distress, (-) Wheezes, (-) Rales Abd: Soft, (-) tenderness, (-) Distension, (-) Guarding, (-) Rebound Musculoskeletal: (-) Edema Neuro: Alert, Oriented x3 Psych: Mood and affect Normal Triage Information Reviewed: Yes Vital Signs On Initial Exam: Initial Vitals Temp Pulse Resp BP Pulse Ox 99.1 F 75 16 126/66 99 04/11/19 18:03 04/11/19 18:03 04/11/19 18:03 04/11/19 18:03 04/11/19 18:03 Vital Signs Reviewed: Yes Procedures - Laceration/Wound Repair 1 Location: head Anesthesia: Lido Laceration/Wound Explored: clean Number of Sutures: 1 - 6-0 Suture Diagnostics - Vital Signs Vital Signs Temp Pulse Resp BP Pulse Ox 04/11/19 18:03 99.1 F 75 16 126/66 99 - Laboratory Lab Statement: Any lab studies that have been ordered have been reviewed, and results considered in the medical decision making process. Re-Evaluation - Re-Evaluation First Eval Re-Evaluation Time: 20:10 Change: Unchanged Comment: laceration repair Laceration Repair Course/Dx - Course Course Of Treatment: A 33 y/o female presents to [facility] with a chief complaint of a head laceration today. The physical exam revealed a single laceration, Y shaped with the longest arm of the Y being 2cm and the smallest offshoot is 4mm. The wound itself is already well approximated. It is otherwise very linear. The wound is intact and not jagged. There is no active bleeding. It is appropriately tender, no unusual tenderness, no bony deformity or tenderness. Sensation is intact. No debris. 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 In the ED course the patient was give 875 mg Augmentin PO and 1mg Lidocaine INJ. The laceration was reparied using 1 6-0 Suture. The patient will be discharged with a presctipiton for Augmentin and follow up with her PCP. The patient is agreeable with this plan. Discharge - Sign-Out/Discharge Documenting (check all that apply): Patient Departure - DC Patient Received Moderate/Deep Sedation with Procedure: No - Discharge Plan Condition: Improved Disposition: HOME Prescriptions: Amoxicillin/Clavulanate TAB* [Augmentin TAB 875*] 875 mg PO BID 7 Days #13 tab Patient Education Materials: Animal Bite (ED), Laceration (ED) Print Language: SAMI Referrals: Kathleen Rodgers MD [Primary Care Provider] - - Billing Disposition and Condition Condition: IMPROVED Disposition: Home - Attestation Statements Document Initiated by Juany: Yes Documenting Scribe: Grupo Fuchs Provider For Whom Juany is Documenting (Include Credential): Quoc Hannha MD Scribe Attestation: Grupo Hoffmann scribed for Quoc Hannah MD on 04/12/19 at 0551. Scribe Documentation Reviewed: Yes Provider Attestation: The documentation as recorded by the Grupo moseley accurately reflects the service I personally performed and the decisions made by , Quoc Hannah MD Status of Scribkurt Document: Viewed
[2019-04-11 20:32] VITALS: BP 104/72
== END | disposition home or self-care (01) ==
LOC: ED 17:58
DX: S01.91XA Laceration without foreign body of unspecified part of head, initial encounter (principal); W22.8XXA Striking against or struck by other objects, initial encounter; Y92.9 Unspecified place or not applicable
CPT/HCPCS: 12001; 99282; A9270-GY